=== PATIENT | male | born 1960 ===

== ENCOUNTER 2021-06-29 04:29 | Day surgery (SDC) | payer OTHER ==
[2021-06-28 14:36] VITALS: BMI 30.7
[2021-06-29] MEDS ORDERED: oxyCODONE HCL 5 MG TABLET PO PRN (08:15)
[2021-06-29] MEDS ORDERED: LACTATED RINGERS SOLUTION 1,000 ML IV SCH (08:15)
[2021-06-29] MEDS ORDERED: PROMETHAZINE HCL 25 MG/1 ML VIAL IVPUSH PRN (08:15)
[2021-06-29] MEDS ORDERED: ONDANSETRON 4 MG/2 ML VIAL IVPUSH PRN (08:15)
[2021-06-29] MEDS ORDERED: BACITRACIN 15 GM TUBE TOPICAL OINTMENT ONE (10:33)
[2021-06-29] MEDS ORDERED: MIDAZOLAM HCL 2 MG/2 ML SINGLE DOSE VIAL ONE (10:43)
[2021-06-29] MEDS ORDERED: PROPOFOL 20 ML ONE (10:43)
[2021-06-29] MEDS ORDERED: ceFAZolin SODIUM 1 GM VIAL IVPB ONE (11:45)
[2021-06-29] MEDS ORDERED: oxyCODONE HCL 5 MG TABLET ONE (14:05)
[2021-06-29 15:19] VITALS: BP 126/72; PULSE 80; TEMP 97.8
== END 2021-06-29 15:35 | disposition home or self-care (01) ==
LOC: JASU-SURG 04:29
PROVIDERS: ATTEND Urology
PROC: 0V503ZZ Destruction of Prostate, Percutaneous Approach (ICD-10-PCS; principal; 2021-06-29 12:00)
DX: C61 Malignant neoplasm of prostate (principal)
CPT/HCPCS: 55873; C2618; 94760; C9803; U0003; U0005